=== PATIENT | male | born 1980 | race Caucasian/White ===

== ENCOUNTER 2020-01-28 11:04 | Emergency (ER) | payer MEDICAID ==
[~2020-01-28] VITALS: Ht 172.7 cm; Wt 92.5 kg
[2020-01-28 11:10] VITALS: Ht 172.7 cm; Wt 92.5 kg
[2020-01-28 11:45] VITALS: BP 122/72
== END 2020-01-28 12:24 | disposition home or self-care (01) ==
LOC: ED 11:04
DX: S50.362A Insect bite (nonvenomous) of left elbow, initial encounter (principal); W57.XXXA Bitten or stung by nonvenomous insect and other nonvenomous arthropods, initial encounter; Y93.89 Activity, other specified; Y92.89 Other specified places as the place of occurrence of the external cause; Y99.8 Other external cause status
CPT/HCPCS: J7512

== ENCOUNTER 2020-01-30 23:13 | Emergency (ER) | payer OTHER ==
[~2020-01-30] VITALS: Ht 175.3 cm; Wt 81.6 kg
[2020-01-30 23:22] VITALS: BP 120/81; Ht 175.3 cm; Wt 81.6 kg
== END 2020-01-31 00:15 | disposition other institution (70) ==
LOC: ED 23:13
DX: Z02.89 Encounter for other administrative examinations (principal)